=== PATIENT | female | born 1980 ===

== ENCOUNTER 2020-10-22 07:05 | Emergency (ER) | payer MEDICAID, OTHER ==
[~2020-10-22] VITALS: Ht 157.5 cm; Wt 68.0 kg
[2020-10-22 07:09] VITALS: BP 137/98
[2020-10-22] MEDS ORDERED: KETOROLAC TROMETH 60MG/2ML VIAL IM ONE (08:15)
[2020-10-22] MEDS ORDERED: HYDROcodone-ACET 5/325MG TAB PO ONE (08:30)
[2020-10-22] MEDS ORDERED: ONDANSETRON ODT 4 MG TAB PO ONE (08:30)
== END 2020-10-22 09:20 | disposition home or self-care (01) ==
LOC: ER 07:05
DX: S83.92XA Sprain of unspecified site of left knee, initial encounter (principal); Z88.1 Allergy status to other antibiotic agents; X50.1XXA Overexertion from prolonged static or awkward postures, initial encounter; Y93.89 Activity, other specified; Y92.89 Other specified places as the place of occurrence of the external cause; Y99.8 Other external cause status
CPT/HCPCS: 29505; 73562; 99283; Q0162